=== PATIENT | female | born 1960 | race Caucasian/White ===

== ENCOUNTER → 2017-01-15 | Outpatient (CLI) | payer BC ==
--- NOTE | 2017-01-15 08:02 | US ---
EXAMINATION TYPE: US portal vein; US Liver per order with reason for exam documented in Clinical Hist ory per order. 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 Assess for signs of advanced fibrosis, portal HTN, HCC; occasional epigastric pain; on meds for PBC. EXAM MEASUREMENTS: Liver Length: 13.6cm Gallbladder Wall: 0.2cm CBD: 0.5cm Right Kidney: 9.8 x 5.8 x 3.3cm ANATOMY: Pancreas: wnl as seen due to overlying bowel gas Liver: coarse appearance; Hepatic Vein flow is present by PW Doppler and Color Flow in Right, Middle and Left Hepatic Veins Color flow patency within the portal vein: yes, hepatopetal flow Portal Vein Flow: Flow present in main, right, and left portal veins is demonstrated by PW Doppler an d Color Flow Common Hepatic Artery: PW Doppler and Color Flow is documented towards liver Gallbladder: wnl Evidence for sonographic Pleitez's sign: No CBD: wnl Right Kidney: no hydro or masses seen Ascites noted? no IMPRESSION: 1. Features of cirrhotic liver disease. 2. Portal vein is patent.
== END ==
LOC: RADUSWWP 06:48
PROVIDERS: ATTEND Internal Medicine
DX: K74.0 Hepatic fibrosis (principal); K76.6 Portal hypertension
CPT/HCPCS: 93976